=== PATIENT | male | born 1980 | race Caucasian/White ===

== ENCOUNTER 2017-11-28 10:45 | Emergency (ER) | payer BC ==
[2017-11-28 12:14] VITALS: BP 146/76
--- NOTE | 2017-11-28 12:40 | ED ---
Throat Pain/Nasal Congestion - HPI Summary HPI Summary: 37 yr old with complaint of pimple and then swelling to the right upper lip. Onset two days ago. He states he took a hot needle to it last evening without results. his girlfriend squeezed it hard this morning and some white pus came out. he states his lip is smaller now and better than this morning. He has no other complaints. - History of Current Complaint Chief Complaint: UCSkin Time Seen by Provider: 11/28/17 12:27 - Allergies/Home Medications Allergies/Adverse Reactions: Allergies Allergy/AdvReac Type Severity Reaction Status Date / Time No Known Allergies Allergy Verified 11/28/17 12:15 Home Medications: Home Medications Cyclosporine 0.05% OPHTH (NF) [Restasis 0.05% OPHTH] 1 drop BOTH EYES DAILY [History Confirmed 11/28/17] PMH/Surg Hx/FS Hx/Imm Hx Psychiatric History: Reports: Hx Depression - treated with sertraline - Surgical History Surgery Procedure, Year, and Place: wisdom teeth 1995 Infectious Disease History: No Infectious Disease History: Denies: Traveled Outside the [place] in Last 30 Days - Family History Known Family History: Positive: None - Social History Lives: With Family Alcohol Use: Occasionally Substance Use Type: Reports: Marijuana Substance Use Comment - Amount & Last Used: last pot was last week Smoking Status (MU): Never Smoked Tobacco Type: Smokeless Tobacco Amount Used/How Often: occasional usage of chewing tobacco Length of Time of Smoking/Using Tobacco: on/off 20 yrs Have You Smoked in the Last Year: Yes Review of Systems Positive: Other - lip swelling right side with pimple All Other Systems Reviewed And Are Negative: Yes Physical Exam Triage Information Reviewed: Yes Vital Signs On Initial Exam: Initial Vitals Temp Pulse Resp BP 98.3 F 83 20 146/76 11/28/17 12:07 11/28/17 12:07 11/28/17 12:07 11/28/17 12:07 Vital Signs Reviewed: Yes Appearance: Positive: Well-Appearing, No Pain Distress Skin: Positive: Warm Head/Face: Positive: Normal Head/Face Inspection Eyes: Positive: EOMI ENT: Positive: Other - right upper lip with some mild edema without fluctuance. Mild tender, mild redness Neck: Positive: Supple, No Lymphadenopathy Respiratory/Lung Sounds: Positive: Clear to Auscultation, Breath Sounds Present Cardiovascular: Positive: RRR. Negative: Murmur Musculoskeletal: Positive: Strength/ROM Intact Neurological: Positive: Sensory/Motor Intact, Alert, Oriented to Person Place, Time, CN Intact II-III - Osorio Coma Scale Best Eye Response: 4 - Spontaneous Best Motor Response: 6 - Obeys Commands Best Verbal Response: 5 - Oriented Diagnostics - Vital Signs Vital Signs Temp Pulse Resp BP 11/28/17 12:07 98.3 F 83 20 146/76 - Laboratory Lab Statement: Any lab studies that have been ordered have been reviewed, and results considered in the medical decision making process. EENT Course/Dx - Course Course Of Treatment: 37 yr old with cellulitis upper right lip. Rx with keflex. - Diagnoses Provider Diagnoses: Cellulitis, Hypertension Discharge - Discharge Plan Condition: Good Disposition: HOME Prescriptions: Cephalexin CAP* [Keflex CAP*] 500 mg PO QID #40 cap Patient Education Materials: Cellulitis (ED), Hypertension (ED) Referrals: No Primary Care Phys,NOPCP [Primary Care Provider] - Celio Luna MD [Medical Doctor] - [facility] [Outside] Additional Instructions: If your lip gets bigger or painful go to the ER.
== END 2017-11-28 12:41 | disposition home or self-care (01) ==
LOC: UCCORT 10:45
DX: K13.0 Diseases of lips (principal); I10 Essential (primary) hypertension
CPT/HCPCS: 99212; G0463

== ENCOUNTER 2018-10-18 17:32 | Emergency (ER) | payer BC ==
[2018-10-18 17:49] VITALS: BP 94/77
--- NOTE | 2018-10-18 18:00 | ED ---
Throat Pain/Nasal Congestion - HPI Summary HPI Summary: 38 yr old male with complaint of right ear pain. Onset 3-4 days ago. He has mild sinus congestion and scratchy throat as well, as well as some mild tenderness posterior auricular nodes. No fever or chills. No trouble swallowing. - History of Current Complaint Chief Complaint: UCEar Time Seen by Provider: 10/18/18 17:49 - Allergies/Home Medications Allergies/Adverse Reactions: Allergies Allergy/AdvReac Type Severity Reaction Status Date / Time No Known Allergies Allergy Verified 10/18/18 17:43 PMH/Surg Hx/FS Hx/Imm Hx Psychiatric History: Reports: Hx Depression - treated with sertraline - Surgical History Surgery Procedure, Year, and Place: wisdom teeth 1995 Infectious Disease History: No Infectious Disease History: Denies: Traveled Outside the [place] in Last 30 Days - Family History Known Family History: Positive: None - Social History Occupation: Employed Full-time Alcohol Use: Occasionally Substance Use Type: Reports: Marijuana Substance Use Comment - Amount & Last Used: last pot was last week Smoking Status (MU): Never Smoked Tobacco Type: Smokeless Tobacco Amount Used/How Often: occasional usage of chewing tobacco Length of Time of Smoking/Using Tobacco: on/off 20 yrs Have You Smoked in the Last Year: Yes Review of Systems Constitutional: Negative Positive: Ear Ache, Nasal Discharge All Other Systems Reviewed And Are Negative: Yes Physical Exam Triage Information Reviewed: Yes Vital Signs On Initial Exam: Initial Vitals Temp Pulse Resp BP Pulse Ox 98.1 F 83 20 94/77 97 10/18/18 17:46 10/18/18 17:46 10/18/18 17:46 10/18/18 17:46 10/18/18 17:46 Vital Signs Reviewed: Yes Appearance: Positive: Well-Appearing, No Pain Distress Skin: Positive: Warm Head/Face: Positive: Normal Head/Face Inspection Eyes: Positive: EOMI ENT: Positive: Pharynx normal, Nasal congestion, TM red - bilateral with right TM retraction, Uvula midline. Negative: Muffled voice, Hoarse voice Neck: Positive: Supple, Nontender, Enlarged Nodes @ - minimal tender right posterior auricular nodes with barely palpable presence. Respiratory/Lung Sounds: Positive: Clear to Auscultation, Breath Sounds Present Cardiovascular: Positive: RRR. Negative: Murmur Abdomen Description: Positive: Nontender Musculoskeletal: Positive: Strength/ROM Intact Neurological: Positive: Sensory/Motor Intact, Alert, Oriented to Person Place, Time, CN Intact II-III, Normal Gait, Speech Normal Psychiatric: Positive: Normal - Osorio Coma Scale Best Eye Response: 4 - Spontaneous Best Motor Response: 6 - Obeys Commands Best Verbal Response: 5 - Oriented Coma Scale Total: 15 Diagnostics - Vital Signs Vital Signs Temp Pulse Resp BP Pulse Ox 10/18/18 17:46 98.1 F 83 20 94/77 97 - Laboratory Lab Statement: Any lab studies that have been ordered have been reviewed, and results considered in the medical decision making process. EENT Course/Dx - Course Course Of Treatment: 38 yr old male with Otitis media. Rx cefdinir. - Diagnoses Provider Diagnoses: Otitis media Discharge - Sign-Out/Discharge Documenting (check all that apply): Patient Departure All imaging exams completed and their final reports reviewed: No Studies - Discharge Plan Condition: Good Disposition: HOME Prescriptions: Cefdinir [Cefdinir 300 MG CAP] 300 mg PO BID #20 cap Patient Education Materials: Ear Infection (ED) Referrals: David Mora DO [Primary Care Provider] - 2 Days - Billing Disposition and Condition Condition: GOOD Disposition: Home
== END 2018-10-18 18:01 | disposition home or self-care (01) ==
LOC: UCCORT 17:32
DX: H66.91 Otitis media, unspecified, right ear (principal)
CPT/HCPCS: 99212; G0463

== ENCOUNTER 2019-12-26 17:22 | Emergency (ER) | payer BC ==
[2019-12-26 18:05] VITALS: BP 142/87
--- NOTE | 2019-12-26 19:14 | UC ---
Throat Pain/Nasal Praveen HPI - HPI Summary HPI Summary: Pt presents with progressive painful tonsils x 2 days Painful swallowing no drooling no fever, chills, no rash, no abd pain mild nasal congestion. Pt has tried OTC med with little improvement. Pt was exposed to strep recently . no myalgia medications as entered in the EMR by calibration checker Reviewed. - History of Current Complaint Chief Complaint: UCGeneralIllness Stated Complaint: SWOLLEN TONSILS Time Seen by Provider: 12/26/19 18:51 Hx Obtained From: Patient Pain Intensity: 0 - Allergies/Home Medications Allergies/Adverse Reactions: Allergies Allergy/AdvReac Type Severity Reaction Status Date / Time No Known Allergies Allergy Verified 12/26/19 17:59 Home Medications: Home Medications Ibuprofen TAB* [Motrin TAB* 400 MG] 400 mg PO Q6H PRN 12/26/19 [History Confirmed 12/26/19] PMH/Surg Hx/FS Hx/Imm Hx Previously Healthy: Yes - Surgical History Surgical History: Yes Surgery Procedure, Year, and Place: wisdom teeth 1995. vasectomy - Family History Known Family History: Positive: None, Non-Contributory - Social History Occupation: Employed Full-time Lives: Alone Alcohol Use: Occasionally Substance Use Type: Marijuana Substance Use Comment - Amount & Last Used: occasional Smoking Status (MU): Never Smoked Tobacco Type: Smokeless Tobacco Amount Used/How Often: occasional usage of chewing tobacco Length of Time of Smoking/Using Tobacco: on/off 20 yrs Have You Smoked in the Last Year: Yes Review of Systems All Other Systems Reviewed And Are Negative: Yes Constitutional: Positive: Fatigue Skin: Positive: Negative ENT: Positive: Sore Throat, Sinus Congestion Physical Exam - Summary Physical Exam Summary: Vital Signs Reviewed: Yes A+Ox3, no distress Eyes: Conjunctiva Clear, MICAELA. EOM intact and full ENT: Hearing grossly normal TM x 2 clear, turbinates inflammed and boggy, + PND mmoist, uvula midline, + exudate on tonsils L>R , + diffuse erythema Neck: Positive: Supple + submandibular LA Respiratory: Positive: No respiratory distress, No accessory muscle use + CTA throughout no w/r Cardiovascular: RRR nl s1, s2 no m/r CBT <2 sec abd soft + BS nt/nd no guarding, no distension Musculoskeletal Exam: LAN x 4 without difficulty Strength Intact, ROM Intact Neurological: Positive: Alert, + sensation throughout Psychological: Positive: Normal Response To e merchant Skin: Positive: no rash, no ecchymosis Triage Information Reviewed: Yes Vital Signs: Initial Vital Signs Temp 98.2 F 12/26/19 18:00 Pulse 74 12/26/19 18:00 Resp 16 12/26/19 18:00 BP 142/87 12/26/19 18:00 Pulse Ox 99 12/26/19 18:00 Throat Pain/Nasal Course/Dx - Course Course Of Treatment: Pt presents to with progressive sore throat pain x 2 days. No fever, chills + pain full swallowing sinus congestion + pND PT no toxic appearint + erythema, PND + exudate strep neg will Rx abx given exam, exposure humidified air hydrate secretion precaution - Differential Dx/Diagnosis Provider Diagnosis: Exudative pharyngitis Discharge ED - Sign-Out/Discharge Documenting (check all that apply): Patient Departure All imaging exams completed and their final reports reviewed: No Studies - Discharge Plan Condition: Stable Disposition: HOME Prescriptions: Amoxicillin/Clavulanate TAB* [Augmentin TAB 875*] 875 mg PO BID #20 tab Patient Education Materials: Tonsillitis (ED) Referrals: David Mora DO [Primary Care Provider] - Additional Instructions: - Okay to alternate ibuprofen (Advil, Motrin) and Tylenol every 3 hours for pain. Take with food. Do NOT take for more than 4-5 days - Okay to gargle and spit warm salt water every 4 hours as needed for pain - Take antibiotics as prescribed until gone - Stay well hydrated - frequent sips of cold fluids will be soothing to your throat (popsicles, jello, ice cream, ice water). Avoid excess caffeine until your symptoms have resolved. -Throat infections are spread by oral secretions - do not share eating or drinking utensils until you symptoms are resolved. Clean items that may get your secretions such as cell phones, ipads, computer mouse, television remotes. Once you have been on antibiotics for 2 days, change your toothbrush and your pillowcase. - humidify the air in the room where you sleep - boil water, run a hot steam shower, vaporizer, cups of water by heat register - Okay to take over the counter cough and decongestant medication - Contact your doctor tomorrow to schedule a follow-up, recheck appointment. As discussed, this needs to to be rechecked given your history or tobacco use. If you develop any difficulty swallowing or breathing, it is recommended you contact 911 or go immediately to the emergency department - Billing Disposition and Condition Condition: STABLE Disposition: Home
--- NOTE | 2019-12-30 07:22 | UC ---
- Progress Note Progress Note: Was prescrbied augmentin for exudative tonsillitis, but culture is negative. If antibiotics made a big improvement, course can be completed, but it would be ok to stop use of them as likely the infection is viral. Course/Dx - Diagnoses Provider Diagnoses: Exudative pharyngitis Discharge ED - Sign-Out/Discharge Documenting (check all that apply): Post-Discharge Follow Up All imaging exams completed and their final reports reviewed: No Studies - Discharge Plan Condition: Stable Disposition: HOME Prescriptions: Amoxicillin/Clavulanate TAB* [Augmentin TAB 875*] 875 mg PO BID #20 tab Patient Education Materials: Tonsillitis (ED) Referrals: David Mora DO [Primary Care Provider] - Additional Instructions: - Okay to alternate ibuprofen (Advil, Motrin) and Tylenol every 3 hours for pain. Take with food. Do NOT take for more than 4-5 days - Okay to gargle and spit warm salt water every 4 hours as needed for pain - Take antibiotics as prescribed until gone - Stay well hydrated - frequent sips of cold fluids will be soothing to your throat (popsicles, jello, ice cream, ice water). Avoid excess caffeine until your symptoms have resolved. -Throat infections are spread by oral secretions - do not share eating or drinking utensils until you symptoms are resolved. Clean items that may get your secretions such as cell phones, ipads, computer mouse, television remotes. Once you have been on antibiotics for 2 days, change your toothbrush and your pillowcase. - humidify the air in the room where you sleep - boil water, run a hot steam shower, vaporizer, cups of water by heat register - Okay to take over the counter cough and decongestant medication - Contact your doctor tomorrow to schedule a follow-up, recheck appointment. As discussed, this needs to to be rechecked given your history or tobacco use. If you develop any difficulty swallowing or breathing, it is recommended you contact 911 or go immediately to the emergency department - Billing Disposition and Condition Condition: STABLE Disposition: Home
== END 2019-12-26 19:37 | disposition home or self-care (01) ==
LOC: UCCORT 17:22
DX: J02.9 Acute pharyngitis, unspecified (principal); R53.83 Other fatigue; F17.220 Nicotine dependence, chewing tobacco, uncomplicated
CPT/HCPCS: 87070; 87651; 99212; G0463